=== PATIENT | male | born 1995 | race Caucasian/White ===

== ENCOUNTER 2024-10-10 09:58 | Emergency (ER) | payer BC ==
[~2024-10-10] VITALS: Ht 170.2 cm; Wt 84.0 kg
[2024-10-10 10:20] VITALS: O2SAT 97
[2024-10-10] MEDS ORDERED: ACETAMINOPHEN 325MG TABLET PO ONE (11:00)
[2024-10-10] MEDS ORDERED: KETOROLAC 30MG/ML VIAL IM ONE (11:00)
[2024-10-10] MEDS ORDERED: METOCLOPRAMIDE HCL 10MG TABLET PO ONE (11:00)
[2024-10-10] MEDS: ACETAMINOPHEN 325MG TABLET PO NR (12:50)
[2024-10-10] MEDS: METOCLOPRAMIDE HCL 10MG TABLET PO NR (12:51)
[2024-10-10] MEDS: KETOROLAC 30MG/ML VIAL IM NR (12:51)
[2024-10-10] MEDS ORDERED: NAPR-681 MT (13:04)
[2024-10-10 13:13] VITALS: BP 122/68; PULSE 104; RESP 18; TEMP 37.00296; O2SAT 97
== END 2024-10-10 13:14 | disposition home or self-care (01) ==
LOC: ER 10:06
DX: R51.9 Headache, unspecified (principal)
CPT/HCPCS: 99283; 96372; J1885; J8597